=== PATIENT | male | born 1955 | race African-American/Black ===

== ENCOUNTER 2022-02-18 15:15 | Inpatient (IN) | payer MEDICARE, MEDICAID ==
[2022-02-18 16:50] LABS: #Basophils 0.1 thou/uL (0.0-0.2); #Lymphocytes 1.6 thou/uL (1.20-3.40); #Monocytes 0.7 thou/uL (0.11-0.59); #Neutrophils 5.9 thou/uL (1.40-6.50); %Basophils 0.6 % (0.0-1.0); %Lymphocytes 19.7 % (21.0-51.0); %Monocytes 8.5 % (0.0-10.0); %Neutrophils 71.1 % (42.0-75.0); Mean Corpuscular HGB CONC 30.8 g/dL (32.0-36.0); Mean Corpuscular Hemoglobin 25.6 pg (27.0-31.0); Mean Corpuscular Volume 83.1 fL (78.0-98.0); Mean Platelet Volume 7.3 fL (7.4-10.4); Platelet Count 325 thou/uL (130-400); RBC Distribution Width 16.3 % (11.5-14.5); White Blood Cell (WBC) Count 8.2 thou/uL (4.8-10.8)
[2022-02-18 16:53] LABS: Bilirubin Negative (Negative); Blood, Urine Trace (Negative); Clarity Extra Turbid (Clear); Glucose, Urine (Dipstick) Normal (Negative); Ketone, Urine Negative (Negative); Leukocyte 500 Leu/uL (Negative); Nitrite Negative (Negative); Protein, Urine (Dipstick) Negative (Neg-Trace); Specific Gravity, Urine 1.014 (1.002-1.036); Squamous Epithelial 0-3 HPF (0-3); Urobilinogen Normal mg/dL (Less than 2); pH, Urine 7.5 (5.0-9.0)
[2022-02-18 17:07] LABS: Bacteria/HPF 1+ HPF (None Seen)
[2022-02-18 17:12] LABS: ALT (SGPT) 21 U/L (8-55); AST (SGOT) 17 U/L (5-34); Alkaline Phosphatase 141 U/L (40-110); Anion Gap 11 mmol/L (10-20); BUN (Urea Nitrogen) 10 mg/dL (8.4-25.7); Bilirubin, Total 0.4 mg/dL (0.2-1.2); Calc. Creatinine Clearance 0 mL/min (70-130); Calcium 10.2 mg/dL (7.8-10.44); Carbon Dioxide 29 mmol/L (23-31); Chloride 104 mmol/L (98-107); Globulin 3.7 g/dL (2.4-3.5); Glucose 108 mg/dL (80-115); Potassium 3.9 mmol/L (3.5-5.1); Protein, Total 7.7 g/dL (5.8-8.1); Sodium 140 mmol/L (136-145)
[2022-02-18] MEDS ORDERED: cefTRIAXone\\ROCEPHIN 1 GM VIAL ONE (17:46)
[2022-02-18 19:52] VITALS: BMI 25.8
[2022-02-18] MEDS ORDERED: Ondansetron PF 4 MG/2 ML Vial IVP PRN (20:36)
[2022-02-18] MEDS ORDERED: Acetaminophen 650 MG Suppository PR PRN (20:36)
[2022-02-18] MEDS ORDERED: Acetaminophen 325 MG TAB PO PRN (20:36)
[2022-02-18] MEDS ORDERED: Ondansetron ODT 4 MG TAB PO PRN (20:36)
[2022-02-18] MEDS: Sodium Chloride 0.9% 1,000 ML IV SCH (20:36)
[2022-02-19] MEDS: Sodium Chloride 0.9% 1,000 ML IV SCH (05:34)
[2022-02-19 06:57] LABS: #Basophils 0.1 thou/uL (0.0-0.2); #Lymphocytes 2.3 thou/uL (1.20-3.40); #Monocytes 0.9 thou/uL (0.11-0.59); #Neutrophils 3.9 thou/uL (1.40-6.50); %Basophils 0.8 % (0.0-1.0); %Eosinophils 0.1 % (0.0-10.0); %Monocytes 11.9 % (0.0-10.0); %Neutrophils 55.2 % (42.0-75.0); Hemoglobin 11.5 g/dL (14.0-18.0); Mean Corpuscular HGB CONC 30.9 g/dL (32.0-36.0); Mean Corpuscular Hemoglobin 25.9 pg (27.0-31.0); Mean Corpuscular Volume 83.9 fL (78.0-98.0); Mean Platelet Volume 7.4 fL (7.4-10.4); Platelet Count 298 thou/uL (130-400); RBC Distribution Width 16.3 % (11.5-14.5); Red Blood Cell (RBC) Count 4.42 mill/uL (4.70-6.10); White Blood Cell (WBC) Count 7.1 thou/uL (4.8-10.8)
[2022-02-19 07:19] LABS: Anion Gap 13 mmol/L (10-20); BUN (Urea Nitrogen) 12 mg/dL (8.4-25.7); Calc. Creatinine Clearance 131 mL/min (70-130); Calcium 10.1 mg/dL (7.8-10.44); Carbon Dioxide 27 mmol/L (23-31); Chloride 108 mmol/L (98-107); Glucose 87 mg/dL (80-115); Potassium 3.7 mmol/L (3.5-5.1); Sodium 144 mmol/L (136-145)
[2022-02-19] MEDS ORDERED: Enoxaparin Sodium 40 MG/0.4 ML SYRINGE SC SCH (09:00)
[2022-02-19] MEDS ORDERED: levETIRAcetam 500 mg/5 ml Oral Solution PER TUBE SCH (11:00)
[2022-02-19] MEDS ORDERED: lamoTRIgine 100 MG TAB PER TUBE SCH (11:00)
[2022-02-19] MEDS ORDERED: Metoprolol Tartrate 50 MG TAB PER TUBE SCH (11:15)
[2022-02-19] MEDS ORDERED: Oxybutynin ER 5 MG TAB PO SCH (13:00)
[2022-02-19] MEDS: Oxybutynin 5 MG TAB PER TUBE SCH ×3 (14:20→20:17)
[2022-02-19] MEDS: cefTRIAXone\\ROCEPHIN 1 GM in Sodium Chloride 0.9% 100 ML IVPB SCH (18:12)
[2022-02-19] MEDS: Senokot 8.6 MG TAB PER TUBE SCH (20:16)
[2022-02-19] MEDS: Metoprolol Tartrate 50 MG TAB PER TUBE SCH (20:16)
[2022-02-19] MEDS: levETIRAcetam 500 mg/5 ml Oral Solution PER TUBE SCH (20:16)
[2022-02-19] MEDS: Melatonin 3 MG TAB PER TUBE SCH (20:16)
[2022-02-19] MEDS: cloNIDine 0.1 MG TAB PO SCH (20:17)
[2022-02-19] MEDS: lamoTRIgine 100 MG TAB PER TUBE SCH (20:17)
[2022-02-20] MEDS: cloNIDine 0.1 MG TAB PO SCH ×2 (08:41→22:16)
[2022-02-20] MEDS: Multivits W-Minerals Liquid 15 ML LIQ PER TUBE SCH (08:41)
[2022-02-20] MEDS: levETIRAcetam 500 mg/5 ml Oral Solution PER TUBE SCH ×2 (08:41→22:16)
[2022-02-20] MEDS: Metoprolol Tartrate 50 MG TAB PER TUBE SCH ×2 (08:43→22:16)
[2022-02-20] MEDS: Loratadine 10 MG TAB PER TUBE SCH (08:43)
[2022-02-20] MEDS: Cholecalciferol 1,000 UNITS (25 MCG) TAB PER TUBE SCH (08:44)
[2022-02-20] MEDS: lamoTRIgine 100 MG TAB PER TUBE SCH ×2 (08:45→22:16)
[2022-02-20] MEDS: Apixaban 5 MG TAB PER TUBE SCH (08:45)
[2022-02-20] MEDS: Senokot 8.6 MG TAB PER TUBE SCH ×2 (08:46→22:16)
[2022-02-20] MEDS: Oxybutynin 5 MG TAB PER TUBE SCH ×4 (08:46→22:16)
[2022-02-20] MEDS: Modafinil 100 MG TAB PER TUBE SCH (11:23)
[2022-02-20] MEDS: cefTRIAXone\\ROCEPHIN 1 GM in Sodium Chloride 0.9% 100 ML IVPB SCH (18:14)
[2022-02-20] MEDS: Melatonin 3 MG TAB PER TUBE SCH (22:17)
[2022-02-21] MEDS: Senokot 8.6 MG TAB PER TUBE SCH (08:01)
[2022-02-21] MEDS: levETIRAcetam 500 mg/5 ml Oral Solution PER TUBE SCH (08:01)
[2022-02-21] MEDS: cloNIDine 0.1 MG TAB PO SCH (08:02)
[2022-02-21] MEDS: Metoprolol Tartrate 50 MG TAB PER TUBE SCH (08:02)
[2022-02-21] MEDS: lamoTRIgine 100 MG TAB PER TUBE SCH (08:02)
[2022-02-21] MEDS: Oxybutynin 5 MG TAB PER TUBE SCH ×2 (08:02→11:47)
[2022-02-21] MEDS: Loratadine 10 MG TAB PER TUBE SCH (08:02)
[2022-02-21] MEDS: Apixaban 5 MG TAB PER TUBE SCH (08:02)
[2022-02-21] MEDS: Cholecalciferol 1,000 UNITS (25 MCG) TAB PER TUBE SCH (08:02)
[2022-02-21 08:21] VITALS: BP 123/70; TEMP 98.1
[2022-02-21] MEDS: Multivits W-Minerals Liquid 15 ML LIQ PER TUBE SCH (09:07)
[2022-02-21] MEDS: Modafinil 100 MG TAB PER TUBE SCH (09:07)
[2022-02-22] MEDS ORDERED: Aspirin Chewable 81 MG TAB PER TUBE SCH (09:00)
== END 2022-02-21 16:10 | DRG 689 ==
LOC: ERS 15:15 → T4-B 18:20 → OBSVTOIN 02-19 08:20
PROVIDERS: ADMIT Internal Medicine; ATTEND Internal Medicine
DX: N39.0 Urinary tract infection, site not specified (principal); L89.154 Pressure ulcer of sacral region, stage 4; G82.50 Quadriplegia, unspecified; K59.2 Neurogenic bowel, not elsewhere classified; Z20.822 Contact with and (suspected) exposure to COVID-19; G40.909 Epilepsy, unspecified, not intractable, without status epilepticus; D64.9 Anemia, unspecified; N31.9 Neuromuscular dysfunction of bladder, unspecified; E89.0 Postprocedural hypothyroidism; F32.A Depression, unspecified; R13.10 Dysphagia, unspecified; I10 Essential (primary) hypertension; Z93.3 Colostomy status; Z93.1 Gastrostomy status; Z79.899 Other long term (current) drug therapy; Z79.01 Long term (current) use of anticoagulants; Z79.82 Long term (current) use of aspirin; Z86.73 Personal history of transient ischemic attack (TIA), and cerebral infarction without residual deficits; Z86.61 Personal history of infections of the central nervous system
CPT/HCPCS: 36415; 70450; 71045; 80048; 80053; 81003; 81015; 83605; 83735; 84484; 85025; 87040; 87086; 93005; 96365; G0378; J0696; J1650; J3490; J7050; U0003; U0005

== ENCOUNTER 2022-03-25 14:44 | Emergency (ER) | payer MEDICARE, MEDICAID | END 2022-03-25 17:21 | disposition home or self-care (01) | LOC: ERS 14:44 | DX: K94.23 Gastrostomy malfunction (principal); E03.9 Hypothyroidism, unspecified; I10 Essential (primary) hypertension; Z86.73 Personal history of transient ischemic attack (TIA), and cerebral infarction without residual deficits; Z79.899 Other long term (current) drug therapy | CPT/HCPCS: 43762 ==

== ENCOUNTER 2022-05-05 07:18 | Outpatient (CLI) | payer MEDICARE, MEDICAID ==
[2022-05-05] MEDS ORDERED: Iopamidol 370 76% 100 ML VIAL ONE (13:49)
== END 2022-05-05 07:19 | disposition home or self-care (01) ==
LOC: CT 07:18
PROVIDERS: ATTEND Urology
DX: G82.50 Quadriplegia, unspecified (principal); N20.0 Calculus of kidney; N32.89 Other specified disorders of bladder; K86.89 Other specified diseases of pancreas; K83.8 Other specified diseases of biliary tract; K63.89 Other specified diseases of intestine; K62.89 Other specified diseases of anus and rectum; Z87.448 Personal history of other diseases of urinary system
CPT/HCPCS: 74178; 82565; Q9967

== ENCOUNTER 2024-02-01 10:20 | Outpatient (CLI) | payer MEDICARE, MEDICAID | END 2024-02-01 10:21 | disposition home or self-care (01) | LOC: ULT 10:20 | PROVIDERS: ATTEND Urology | DX: N20.0 Calculus of kidney (principal); N28.1 Cyst of kidney, acquired; N32.89 Other specified disorders of bladder; R93.5 Abnormal findings on diagnostic imaging of other abdominal regions, including retroperitoneum; Z90.49 Acquired absence of other specified parts of digestive tract; Z87.440 Personal history of urinary (tract) infections | CPT/HCPCS: 74018; 76770 ==

== ENCOUNTER 2024-05-01 19:06 | Emergency (ER) | payer MEDICARE, MEDICAID ==
[2024-05-01 20:13] LABS: #Basophils 0.04 10x3/uL (0.0-0.2); #Eosinphils Less than 0.03 10x3/uL (0.0-0.7); %Basophils 0.7 % (0.0-1.0); %Monocytes 8.6 % (0.0-10.0); %Neutrophils 75.2 % (42.0-75.0); Hematocrit 49.7 % (42.0-52.0); Hemoglobin 15.2 g/dL (14.0-18.0); Mean Corpuscular HGB CONC 30.6 g/dL (32.0-36.0); Mean Corpuscular Hemoglobin 26.3 pg (27.0-31.0); Mean Platelet Volume 10.3 fL (7.4-10.4); Platelet Count 174 10x3/uL (130-400); RBC Distribution Width 14.2 % (11.5-14.5); Red Blood Cell (RBC) Count 5.78 mill/uL (4.70-6.10)
[2024-05-01 20:28] LABS: ALT (SGPT) 13 U/L (8-55); AST (SGOT) 12 U/L (5-34); Albumin 3.7 g/dL (3.4-4.8); Alkaline Phosphatase 110 U/L (40-110); Anion Gap 15 mmol/L (10-20); BUN (Urea Nitrogen) 19 mg/dL (8.4-25.7); Bilirubin, Total 0.3 mg/dL (0.2-1.2); Calc. Creatinine Clearance 0 mL/min (70-130); Calcium 9.5 mg/dL (7.8-10.44); Carbon Dioxide 21 mmol/L (23-31); Chloride 113 mmol/L (98-107); Estimated GFR 95; Globulin 3.8 g/dL (2.4-3.5); Glucose 149 mg/dL (80-115); Potassium 3.6 mmol/L (3.5-5.1); Protein, Total 7.5 g/dL (5.8-8.1); Sodium 145 mmol/L (136-145)
[2024-05-01] MEDS ORDERED: levETIRAcetam 500 MG (5 mL) VIAL ONE (21:09)
== END 2024-05-01 22:11 ==
LOC: ERS 19:06
DX: R56.9 Unspecified convulsions (principal)
CPT/HCPCS: 70450; 80053; 80177; 85025; 96374; 99284; J1953; 36415

== ENCOUNTER 2024-08-30 09:04 | Outpatient (CLI) | payer MEDICARE, MEDICAID | END 2024-08-30 09:05 | disposition home or self-care (01) | LOC: CT 09:04 | PROVIDERS: ATTEND Urology | DX: N20.0 Calculus of kidney (principal); D35.02 Benign neoplasm of left adrenal gland; K76.89 Other specified diseases of liver; I31.39 Other pericardial effusion (noninflammatory); N28.89 Other specified disorders of kidney and ureter; Z87.440 Personal history of urinary (tract) infections | CPT/HCPCS: 74176 ==

== ENCOUNTER 2025-04-20 07:30 | Emergency (ER) | payer MEDICARE, OTHER ==
[2025-04-20 08:38] LABS: #Basophils Less than 0.03 10x3/uL (0.0-0.2); #Eosinophils Less than 0.03 10x3/uL (0.0-0.7); #Monocytes 1.08 10x3/uL (0.11-0.59); #Neutrophils 9.15 10x3/uL (1.40-6.50); %Basophils 0.1 % (0.0-1.0); %Eosinophils 0.1 % (0.0-10.0); %Lymphocytes 14.7 % (21.0-51.0); %Monocytes 8.9 % (0.0-10.0); %Neutrophils 75.2 % (42.0-75.0); Hematocrit 43.7 % (42.0-52.0); Hemoglobin 13.8 g/dL (14.0-18.0); Mean Corpuscular Hemoglobin 27.5 pg (27.0-31.0); Mean Corpuscular Volume 87.1 fL (78.0-98.0); Platelet Count 164 10x3/uL (130-400); Red Blood Cell (RBC) Count 5.02 mill/uL (4.70-6.10); White Blood Cell (WBC) Count 12.15 10x3/uL (4.8-10.8)
[2025-04-20 09:03] LABS: ALT (SGPT) 15 U/L (Less than 45); AST (SGOT) 12 U/L (11-34); Albumin 3.3 g/dL (3.1-4.5); Alkaline Phosphatase 60 U/L (40-110); Anion Gap 13 mmol/L (10-20); BUN (Urea Nitrogen) 18 mg/dL (8.4-25.7); Bilirubin, Total 0.4 mg/dL (0.3-1.2); Calc. Creatinine Clearance 0 mL/min (70-130); Calcium 8.9 mg/dL (7.8-10.44); Carbon Dioxide 30 mmol/L (23-31); Chloride 107 mmol/L (98-107); Globulin 2.8 g/dL (2.4-3.5); Glucose 83 mg/dL (80-115); Potassium 3.8 mmol/L (3.5-5.1); Sodium 146 mmol/L (136-145)
[2025-04-20] MEDS ORDERED: Iopamidol 370 76% 100 ML VIAL ONE (09:58)
== END 2025-04-20 11:51 ==
LOC: ERS 07:30
DX: K94.09 Other complications of colostomy (principal); I10 Essential (primary) hypertension; Z86.73 Personal history of transient ischemic attack (TIA), and cerebral infarction without residual deficits; Z79.899 Other long term (current) drug therapy
CPT/HCPCS: 74177; 80053; 85025; Q9967

== ENCOUNTER 2025-07-12 15:19 | Emergency (ER) | payer MEDICARE, MEDICAID | END 2025-07-12 20:20 | LOC: ERS 15:19 | DX: S09.90XA Unspecified injury of head, initial encounter (principal); I10 Essential (primary) hypertension; Z86.73 Personal history of transient ischemic attack (TIA), and cerebral infarction without residual deficits; W01.10XA Fall on same level from slipping, tripping and stumbling with subsequent striking against unspecified object, initial encounter | CPT/HCPCS: 70450 ==

== ENCOUNTER 2025-07-21 18:07 | Inpatient (IN) | payer MEDICARE, MEDICAID ==
[2025-07-21 19:01] LABS: Hematocrit 45.0 % (42.0-52.0); Hemoglobin 13.9 g/dL (14.0-18.0); Mean Corpuscular Hemoglobin 27.1 pg (27.0-31.0); Mean Corpuscular Volume 87.9 fL (78.0-98.0); Platelet Count 82 10x3/uL (130-400); Red Blood Cell (RBC) Count 5.12 mill/uL (4.70-6.10); White Blood Cell (WBC) Count 25.34 10x3/uL (4.8-10.8)
[2025-07-21 19:13] LABS: ALT (SGPT) 27 U/L (Less than 45); AST (SGOT) 39 U/L (11-34); Acetaminophen Less than 10 mcg/mL (Less than 10); Albumin 2.7 g/dL (3.1-4.5); Alkaline Phosphatase 59 U/L (40-110); Anion Gap 23 mmol/L (10-20); BUN (Urea Nitrogen) 45 mg/dL (8.4-25.7); Bilirubin, Total 0.5 mg/dL (0.3-1.2); Calc. Creatinine Clearance 0 mL/min (70-130); Calcium 8.4 mg/dL (7.8-10.44); Carbon Dioxide 20 mmol/L (23-31); Chloride 106 mmol/L (98-107); Globulin 2.1 g/dL (2.4-3.5); Glucose 83 mg/dL (80-115); Magnesium 2.0 mg/dL (1.6-2.6); Potassium 4.6 mmol/L (3.5-5.1); Salicylate Less than 8.0 mg/dL (Less than 8.0); Sodium 144 mmol/L (136-145)
[2025-07-21 19:27] LABS: Anisocytosis SLIGHT = 6-15 cells HPF (0-5); Burr Cells SLIGHT = 2-5 cells HPF (0-1); Dohle Bodies SLIGHT; Platelet Adequacy Comment Platelets Decreased; Polychromasia SLIGHT = 2-3 cells HPF (0-2); Smudge Cells 8.7 %
[2025-07-21] MEDS ORDERED: Cefepime 2 GM VIAL ONE (20:37)
[2025-07-21 23:43] LABS: Cocaine Metabolite Screen Negative (Negative); THC/Cannabinoid Screen Negative (Negative); Tricyclic Screen Negative (Negative)
[2025-07-21 23:49] LABS: Bacteria/HPF None Seen HPF (None Seen); CAUTI Indications for Culture < 2yrs of age; Glucose, Urine (Dipstick) Normal (Negative); Leukocyte 500 Leu/uL (Negative); Protein, Urine (Dipstick) 30 mg/dL (Neg-Trace); RBC/HPF Greater than 50 HPF (0-3); Specific Gravity, Urine 1.018 (1.002-1.036); WBC/HPF Greater than 50 HPF (0-3)
[2025-07-21 23:53] LABS: Urine Culture Reflex Yes Yes
[2025-07-22] MEDS: VANCOMYCIN 1.75 GM/350 ML Premix BAG IVPB SCH (00:42)
[2025-07-22 02:13] LABS: #Basophils 0.09 10x3/uL (0.0-0.2); #Eosinophils Less than 0.03 10x3/uL (0.0-0.7); #Monocytes 1.44 10x3/uL (0.11-0.59); #Neutrophils 12.71 10x3/uL (1.40-6.50); %Basophils 0.5 % (0.0-1.0); %Eosinophils 0.1 % (0.0-10.0); %Lymphocytes 4.1 % (21.0-51.0); %Monocytes 7.7 % (0.0-10.0); %Neutrophils 68.4 % (42.0-75.0); Hematocrit 43.2 % (42.0-52.0); Hemoglobin 13.2 g/dL (14.0-18.0); Mean Corpuscular Hemoglobin 26.3 pg (27.0-31.0); Mean Corpuscular Volume 86.1 fL (78.0-98.0); Platelet Count 70 10x3/uL (130-400); Red Blood Cell (RBC) Count 5.02 mill/uL (4.70-6.10); White Blood Cell (WBC) Count 18.61 10x3/uL (4.8-10.8)
[2025-07-22 02:22] LABS: ALT (SGPT) 25 U/L (Less than 45); AST (SGOT) 49 U/L (11-34); Albumin 2.4 g/dL (3.1-4.5); Alkaline Phosphatase 65 U/L (40-110); Anion Gap 16 mmol/L (10-20); BUN (Urea Nitrogen) 47 mg/dL (8.4-25.7); Bilirubin, Total 0.4 mg/dL (0.3-1.2); Calc. Creatinine Clearance 0 mL/min (70-130); Calcium 7.9 mg/dL (7.8-10.44); Carbon Dioxide 21 mmol/L (23-31); Chloride 109 mmol/L (98-107); Globulin 2.3 g/dL (2.4-3.5); Glucose 76 mg/dL (80-115); Potassium 3.6 mmol/L (3.5-5.1); Sodium 142 mmol/L (136-145)
[2025-07-22] MEDS ORDERED: Albumin 25% 25 GM (100 mL) BOT IVPB SCH (02:45)
[2025-07-22] MEDS ORDERED: Furosemide 20 MG (2 mL) VIAL ONE (03:54)
[2025-07-22] MEDS ORDERED: Vancomycin Dose by Levels Sliding Scale (Wt 71-99) FS SCH (04:00)
[2025-07-22] MEDS: Furosemide 20 MG (2 mL) VIAL SLOW IVP SCH (04:10)
[2025-07-22] MEDS ORDERED: Ondansetron PF 4 MG/2 ML Vial ONE (04:59)
[2025-07-22] MEDS: Ondansetron PF 4 MG/2 ML Vial IVP PRN (05:07)
[2025-07-22 06:38] VITALS: BMI 30.2
[2025-07-22] MEDS: levETIRAcetam 500 MG TAB PO SCH (09:45)
[2025-07-22] MEDS: levETIRAcetam 500 MG (5 mL) VIAL SLOW IVP SCH ×2 (12:17→21:38)
[2025-07-22] MEDS: Melatonin 3 MG TAB PO SCH (21:20)
[2025-07-22] MEDS: lamoTRIgine 100 MG TAB PO SCH (21:20)
[2025-07-22] MEDS: DorzolamidE/Timolol 2%/0.5% Ophth Soln 10 ml Bottle L EYE SCH (21:21)
[2025-07-22 23:05] LABS: Vancomycin, Trough 8.2 ug/mL
[2025-07-23] MEDS: Vancomycin 1 GM in Premix 1 BAG IVPB SCH ×2 (02:53→12:13)
[2025-07-23 04:40] LABS: Hematocrit 37.9 % (42.0-52.0); Hemoglobin 12.0 g/dL (14.0-18.0); Mean Corpuscular Hemoglobin 27.0 pg (27.0-31.0); Mean Corpuscular Volume 85.4 fL (78.0-98.0); Platelet Count 49 10x3/uL (130-400); Red Blood Cell (RBC) Count 4.44 mill/uL (4.70-6.10); White Blood Cell (WBC) Count 10.90 10x3/uL (4.8-10.8)
[2025-07-23 04:59] LABS: Anion Gap 10 mmol/L (10-20); BUN (Urea Nitrogen) 35 mg/dL (8.4-25.7); Calc. Creatinine Clearance 82 mL/min (70-130); Calcium 8.0 mg/dL (7.8-10.44); Carbon Dioxide 23 mmol/L (23-31); Chloride 113 mmol/L (98-107); Glucose 123 mg/dL (80-115); Potassium 3.3 mmol/L (3.5-5.1); Sodium 143 mmol/L (136-145)
[2025-07-23 05:11] LABS: Platelet Adequacy Comment Platelets Decreased
[2025-07-23] MEDS ORDERED: Vancomycin 1 GM in Premix 1 BAG IVPB SCH (09:00)
[2025-07-23] MEDS: Cholecalciferol 1,000 UNITS (25 MCG) TAB PO SCH (09:43)
[2025-07-23] MEDS: FLU (Fluad Triv) 25-26 (65UP)PF 45 MCG/0.5 ML Syringe IM ONE (09:46)
[2025-07-23] MEDS: PNEUMOC 20-VAL CONJ-DIP CRM/PF 0.5 ML SYRINGE IM ONE (09:47)
[2025-07-23 15:34] VITALS: BMI 30.2
[2025-07-24 06:16] LABS: #Basophils Less than 0.03 10x3/uL (0.0-0.2); #Eosinophils Less than 0.03 10x3/uL (0.0-0.7); #Monocytes 0.63 10x3/uL (0.11-0.59); #Neutrophils 6.27 10x3/uL (1.40-6.50); %Basophils 0.3 % (0.0-1.0); %Eosinophils 0.1 % (0.0-10.0); %Lymphocytes 8.3 % (21.0-51.0); %Monocytes 8.3 % (0.0-10.0); %Neutrophils 82.2 % (42.0-75.0); Hematocrit 40.2 % (42.0-52.0); Hemoglobin 12.1 g/dL (14.0-18.0); Mean Corpuscular Hemoglobin 26.2 pg (27.0-31.0); Mean Corpuscular Volume 87.0 fL (78.0-98.0); Platelet Count 50 10x3/uL (130-400); Red Blood Cell (RBC) Count 4.62 mill/uL (4.70-6.10); White Blood Cell (WBC) Count 7.62 10x3/uL (4.8-10.8)
[2025-07-24 06:22] LABS: Vancomycin, Random 23.2 ug/mL (See Comment)
[2025-07-24 06:23] LABS: Anion Gap 12 mmol/L (10-20); BUN (Urea Nitrogen) 23 mg/dL (8.4-25.7); Calc. Creatinine Clearance 116 mL/min (70-130); Calcium 8.3 mg/dL (7.8-10.44); Carbon Dioxide 23 mmol/L (23-31); Chloride 113 mmol/L (98-107); Glucose 71 mg/dL (80-115); Potassium 3.7 mmol/L (3.5-5.1); Sodium 144 mmol/L (136-145)
[2025-07-24 06:24] LABS: CRP, High Sensitivity at Bryan 15.03 mg/dL (< or = 0.5)
[2025-07-24 06:25] LABS: Magnesium 1.9 mg/dL (1.6-2.6)
[2025-07-25 07:22] LABS: #Basophils Less than 0.03 10x3/uL (0.0-0.2); #Eosinophils Less than 0.03 10x3/uL (0.0-0.7); #Monocytes 0.97 10x3/uL (0.11-0.59); #Neutrophils 3.20 10x3/uL (1.40-6.50); %Basophils 0.4 % (0.0-1.0); %Eosinophils 0.2 % (0.0-10.0); %Lymphocytes 14.3 % (21.0-51.0); %Monocytes 19.5 % (0.0-10.0); %Neutrophils 64.4 % (42.0-75.0); Hematocrit 40.7 % (42.0-52.0); Hemoglobin 12.6 g/dL (14.0-18.0); Mean Corpuscular Hemoglobin 26.7 pg (27.0-31.0); Mean Corpuscular Volume 86.2 fL (78.0-98.0); Platelet Count 71 10x3/uL (130-400); Red Blood Cell (RBC) Count 4.72 mill/uL (4.70-6.10); White Blood Cell (WBC) Count 4.97 10x3/uL (4.8-10.8)
[2025-07-25 07:30] LABS: Anion Gap 8 mmol/L (10-20); BUN (Urea Nitrogen) 16 mg/dL (8.4-25.7); Calc. Creatinine Clearance 125 mL/min (70-130); Calcium 8.2 mg/dL (7.8-10.44); Carbon Dioxide 26 mmol/L (23-31); Chloride 116 mmol/L (98-107); Glucose 80 mg/dL (80-115); Potassium 3.4 mmol/L (3.5-5.1); Sodium 147 mmol/L (136-145)
[2025-07-26] MEDS: Nitroglycerin 2% Ointment 1 INCH/1 GM Packet TOP SCH (02:10)
[2025-07-26 05:34] LABS: Hematocrit 40.6 % (42.0-52.0); Hemoglobin 12.4 g/dL (14.0-18.0); Mean Corpuscular Hemoglobin 26.5 pg (27.0-31.0); Mean Corpuscular Volume 86.8 fL (78.0-98.0); Platelet Count 84 10x3/uL (130-400); Red Blood Cell (RBC) Count 4.68 mill/uL (4.70-6.10); White Blood Cell (WBC) Count 5.38 10x3/uL (4.8-10.8)
[2025-07-26 05:56] LABS: Anion Gap 11 mmol/L (10-20); BUN (Urea Nitrogen) 13 mg/dL (8.4-25.7); Calc. Creatinine Clearance 127 mL/min (70-130); Calcium 8.2 mg/dL (7.8-10.44); Carbon Dioxide 26 mmol/L (23-31); Chloride 115 mmol/L (98-107); Glucose 88 mg/dL (80-115); Potassium 3.5 mmol/L (3.5-5.1); Sodium 148 mmol/L (136-145)
[2025-07-26 06:00] LABS: Platelet Adequacy Comment Platelets Decreased; RBC Morphology Within Normal Limits; Smudge Cells 19.6 %
[2025-07-26] MEDS: hydrALAZINE 20 MG/ML VIAL SLOW IVP SCH (06:53)
[2025-07-26] MEDS ORDERED: Potassium Bicarbonate/Cit Ac 20 MEQ TAB PO SCH (15:15)
[2025-07-26] MEDS ORDERED: hydrALAZINE 20 MG/ML VIAL SLOW IVP PRN (15:20)
[2025-07-26] MEDS: Ammonium Lactate 12% Lotion 225 GM BOT TOP SCH (21:40)
[2025-07-27 05:17] LABS: Hematocrit 38.2 % (42.0-52.0); Hemoglobin 11.6 g/dL (14.0-18.0); Mean Corpuscular Hemoglobin 26.3 pg (27.0-31.0); Mean Corpuscular Volume 86.6 fL (78.0-98.0); Platelet Count 107 10x3/uL (130-400); Red Blood Cell (RBC) Count 4.41 mill/uL (4.70-6.10); White Blood Cell (WBC) Count 6.54 10x3/uL (4.8-10.8)
[2025-07-27 05:30] LABS: Anion Gap 10 mmol/L (10-20); BUN (Urea Nitrogen) 14 mg/dL (8.4-25.7); Calc. Creatinine Clearance 110 mL/min (70-130); Calcium 8.1 mg/dL (7.8-10.44); Carbon Dioxide 25 mmol/L (23-31); Chloride 114 mmol/L (98-107); Glucose 96 mg/dL (80-115); Magnesium 1.8 mg/dL (1.6-2.6); Potassium 3.8 mmol/L (3.5-5.1); Sodium 145 mmol/L (136-145)
[2025-07-27 05:37] LABS: Platelet Adequacy Comment Platelets Decreased; Polychromasia SLIGHT = 2-3 cells HPF (0-2); Smudge Cells 7.9 %
[2025-07-27] MEDS: Magnesium 2 GM/50 ML(in water) 2 GM in Premix 1 BAG IVPB SCH (10:11)
[2025-07-28 04:37] LABS: Hematocrit 40.0 % (42.0-52.0); Hemoglobin 12.2 g/dL (14.0-18.0); Mean Corpuscular Hemoglobin 26.4 pg (27.0-31.0); Mean Corpuscular Volume 86.6 fL (78.0-98.0); Platelet Count 126 10x3/uL (130-400); Red Blood Cell (RBC) Count 4.62 mill/uL (4.70-6.10); White Blood Cell (WBC) Count 6.57 10x3/uL (4.8-10.8)
[2025-07-28 04:49] LABS: Anion Gap 10 mmol/L (10-20); BUN (Urea Nitrogen) 14 mg/dL (8.4-25.7); Calc. Creatinine Clearance 120 mL/min (70-130); Calcium 8.4 mg/dL (7.8-10.44); Carbon Dioxide 26 mmol/L (23-31); Chloride 112 mmol/L (98-107); Glucose 90 mg/dL (80-115); Magnesium 1.9 mg/dL (1.6-2.6); Potassium 3.7 mmol/L (3.5-5.1); Sodium 144 mmol/L (136-145)
[2025-07-28 05:26] LABS: Platelet Adequacy Comment Platelets Decreased; RBC Morphology Within Normal Limits; Smudge Cells 14.0 %
[2025-07-28] MEDS: Magnesium 2 GM/50 ML(in water) 2 GM in Premix 1 BAG IVPB SCH (10:38)
[2025-07-28] MEDS ORDERED: fentaNYL PF 100 MCG/2 ML SYRINGE ONE (14:24)
[2025-07-28] MEDS ORDERED: Rocuronium Bromide 10 MG/ML (10ML VIAL) ONE (14:27)
[2025-07-28] MEDS ORDERED: Lidocaine 1% PF 5 ML VIAL ONE ×2 (14:27→15:49)
[2025-07-28] MEDS ORDERED: PROPOFOL 200 MG/20 ML VIAL ONE (14:59)
[2025-07-28] MEDS ORDERED: Glycopyrrolate 0.2 MG/ML 5 ML SYRINGE ONE (14:59)
[2025-07-28] MEDS ORDERED: PHENYLEPHRINE-NS 100 MCG/ML 10 ML SYRINGE ONE (15:10)
[2025-07-28] MEDS ORDERED: Ondansetron PF 4 MG/2 ML Vial ONE (15:30)
[2025-07-28] MEDS ORDERED: SUGAMMADEX SODIUM 200 MG/2 ML VIAL ONE (15:37)
[2025-07-30] MEDS: Acetaminophen 500 MG TAB PO PRN (20:49)
[2025-07-31 05:02] LABS: INR-International Normal Ratio 1.0; Prothrombin Time 13.5 sec (12.0-14.7)
[2025-07-31 05:03] LABS: PTT 31.5 sec (22.9-36.1)
[2025-07-31 09:11] LABS: #Basophils 0.04 10x3/uL (0.0-0.2); #Eosinophils Less than 0.03 10x3/uL (0.0-0.7); #Monocytes 0.92 10x3/uL (0.11-0.59); #Neutrophils 4.11 10x3/uL (1.40-6.50); %Basophils 0.6 % (0.0-1.0); %Eosinophils 0.0 % (0.0-10.0); %Lymphocytes 22.1 % (21.0-51.0); %Monocytes 13.4 % (0.0-10.0); %Neutrophils 59.8 % (42.0-75.0); Hematocrit 37.9 % (42.0-52.0); Hemoglobin 11.9 g/dL (14.0-18.0); Mean Corpuscular Hemoglobin 26.7 pg (27.0-31.0); Mean Corpuscular Volume 85.2 fL (78.0-98.0); Platelet Count 203 10x3/uL (130-400); Red Blood Cell (RBC) Count 4.45 mill/uL (4.70-6.10); White Blood Cell (WBC) Count 6.87 10x3/uL (4.8-10.8)
[2025-08-01 05:50] LABS: #Basophils 0.05 10x3/uL (0.0-0.2); #Eosinophils Less than 0.03 10x3/uL (0.0-0.7); #Monocytes 0.77 10x3/uL (0.11-0.59); #Neutrophils 3.18 10x3/uL (1.40-6.50); %Basophils 0.9 % (0.0-1.0); %Eosinophils 0.0 % (0.0-10.0); %Lymphocytes 28.0 % (21.0-51.0); %Monocytes 13.1 % (0.0-10.0); %Neutrophils 54.2 % (42.0-75.0); Hematocrit 35.9 % (42.0-52.0); Hemoglobin 10.9 g/dL (14.0-18.0); Mean Corpuscular Hemoglobin 26.2 pg (27.0-31.0); Mean Corpuscular Volume 86.3 fL (78.0-98.0); Platelet Count 278 10x3/uL (130-400); Red Blood Cell (RBC) Count 4.16 mill/uL (4.70-6.10); White Blood Cell (WBC) Count 5.86 10x3/uL (4.8-10.8)
[2025-08-01 06:06] LABS: Anion Gap 8 mmol/L (10-20); BUN (Urea Nitrogen) 9 mg/dL (8.4-25.7); Calc. Creatinine Clearance 103 mL/min (70-130); Calcium 8.1 mg/dL (7.8-10.44); Carbon Dioxide 26 mmol/L (23-31); Chloride 109 mmol/L (98-107); Glucose 82 mg/dL (80-115); Potassium 3.8 mmol/L (3.5-5.1); Sodium 139 mmol/L (136-145)
[2025-08-01] MEDS ORDERED: Sodium Bicarbonate 2.5 MEQ/5 ML SDV ONE (13:37)
[2025-08-01] MEDS ORDERED: Lidocaine 1% w/Epinephrine 1:100K 20 ML VIAL ONE (13:39)
[2025-08-01] MEDS ORDERED: Lidocaine 2% 6 ML (Jelly) SYR ONE (13:39)
[2025-08-01] MEDS ORDERED: Hyoscyamine SL 0.125 MG TAB ONE (14:02)
[2025-08-02] MEDS ORDERED: Acetaminophen 325 MG TAB PO PRN (22:36)
[2025-08-02] MEDS: Ketorolac Tromethamine 30 MG (1 mL) VIAL IVP SCH (22:51)
[2025-08-03] MEDS: levETIRAcetam 500 MG (5 mL) VIAL SLOW IVP SCH (20:31)
[2025-08-04] MEDS: Ketorolac Tromethamine 30 MG (1 mL) VIAL IVP SCH (00:05)
[2025-08-04 08:13] VITALS: BP 148/75
[2025-08-04 09:24] VITALS: TEMP 98
== END 2025-08-04 13:50 | DRG 981 ==
LOC: ERS 18:07 → ERHOLD 23:17 → 2NO 07-22 06:50 → T4-A 07-28 12:04 → T4-B 07-28 17:56
PROVIDERS: ADMIT Internal Medicine; ATTEND Hospitalist
PROC: 3E03329 Introduction of Other Anti-infective into Peripheral Vein, Percutaneous Approach (ICD-10-PCS; 2025-07-22)
PROC: 0DBE0ZZ Excision of Large Intestine, Open Approach (ICD-10-PCS; principal; 2025-07-28)
PROC: 0T9B70Z Drainage of Bladder with Drainage Device, Via Natural or Artificial Opening (ICD-10-PCS; 2025-08-01)
DX: T83.511A Infection and inflammatory reaction due to indwelling urethral catheter, initial encounter (principal); A41.50 Gram-negative sepsis, unspecified; J69.0 Pneumonitis due to inhalation of food and vomit; R65.20 Severe sepsis without septic shock; E87.20 Acidosis, unspecified; R47.01 Aphasia; N17.9 Acute kidney failure, unspecified; E83.42 Hypomagnesemia; K94.29 Other complications of gastrostomy; Z51.5 Encounter for palliative care; I10 Essential (primary) hypertension; E78.5 Hyperlipidemia, unspecified; Z86.73 Personal history of transient ischemic attack (TIA), and cerebral infarction without residual deficits; E89.0 Postprocedural hypothyroidism; Y84.6 Urinary catheterization as the cause of abnormal reaction of the patient, or of later complication, without mention of misadventure at the time of the procedure; D69.6 Thrombocytopenia, unspecified; R33.9 Retention of urine, unspecified; G40.909 Epilepsy, unspecified, not intractable, without status epilepticus; R31.9 Hematuria, unspecified; E87.6 Hypokalemia; Z91.199 Patient's noncompliance with other medical treatment and regimen due to unspecified reason; I48.91 Unspecified atrial fibrillation
CPT/HCPCS: 36415; 36416; 51102; 51702; 70450; 71045; 74176; 74230; 77002; 77012; 80048; 80053; 80202; 80306; 80307; 81001; 83605; 83735; 83880; 84484; 85025; 85610; 85730; 86141; 87040; 87077; 87086; 87149; 87186; 88305; 93005; 93010; 93306; 93970; 96361; 96365; 96367; C1769; C2627; J0360; J0692; J1100; J1885; J1940; J1953; J2185; J2250; J2405; J2543; J2704; J3010; J3373; J3375; J3475